=== PATIENT | female | born 1930 | race African-American/Black ===

== ENCOUNTER 2018-02-26 23:37 | Inpatient (IN) | payer MEDICARE ==
[2018-02-27 00:31] LABS: #Basophils 0.1 thou/uL (0.0-0.2); #Eosinphils 0.1 thou/uL (0.0-0.7); #Monocytes 0.5 thou/uL (0.11-0.59); #Neutrophils 8.3 thou/uL (1.40-6.50); %Basophils 0.6 % (0.0-1.0); %Eosinophils 1.2 % (0.0-10.0); %Lymphocytes 18.5 % (21.0-51.0); %Monocytes 4.4 % (0.0-10.0); %Neutrophils 75.3 % (42.0-75.0); Hemoglobin 8.7 g/dL (12.0-16.0); Mean Corpuscular Hemoglobin 30.3 pg (27.0-31.0); Mean Corpuscular Volume 91.9 fl (81.0-99.0); Mean Platelet Volume 7.8 fL (7.4-10.4); Platelet Count 273 thou/uL (130-400); RBC Distribution Width 12.5 % (11.5-14.5); Red Blood Cell (RBC) Count 2.87 mill/uL (4.20-5.40)
[2018-02-27 00:50] LABS: INR-International Normal Ratio 1.2; PTT 27.8 SEC (22.9-36.1); Prothrombin Time 15.7 SEC (12.0-14.7)
[2018-02-27 00:51] LABS: ALT (SGPT) Less than 7 U/L (8-55); AST (SGOT) 9 U/L (5-34); Albumin 3.5 g/dL (3.4-4.8); Alkaline Phosphatase 43 U/L (40-150); Anion Gap 14 mmol/L (10-20); BUN (Urea Nitrogen) 39 mg/dL (9.8-20.1); Bilirubin, Total 0.3 mg/dL (0.2-1.2); Calc. Creatinine Clearance 0 mL/min (70-130); Calcium 9.3 mg/dL (7.8-10.44); Carbon Dioxide 22 mmol/L (23-31); Chloride 106 mmol/L (98-107); Estimated GFR-MDRD 79; Globulin 2.2 g/dL (2.4-3.5); Glucose 188 mg/dL (83-110); Potassium 3.6 mmol/L (3.5-5.1); Protein, Total 5.7 g/dL (6.0-8.3); Sodium 138 mmol/L (136-145)
[2018-02-27 00:55] LABS: Troponin I 0.024 ng/mL (< 0.028)
[2018-02-27] MEDS ORDERED: Pantoprazole 40 MG VIAL ONE (01:20)
[2018-02-27 01:26] LABS: Bilirubin Negative (Negative); Blood, Urine Negative (Negative); Clarity CLEAR (Clear); Glucose, Urine (Dipstick) Negative (Negative); Leukocyte Negative (Negative); Nitrite Negative (Negative); Protein, Urine (Dipstick) Negative (Neg-Trace); Specific Gravity, Urine 1.018 (1.002-1.036)
[2018-02-27] MEDS ORDERED: Ondansetron ODT 4 MG TAB SL PRN (02:50)
[2018-02-27] MEDS ORDERED: Ondansetron HCl/PF 4 MG/2 ML Vial IVP PRN ×2 (02:50→03:08)
[2018-02-27] MEDS ORDERED: Sodium Chloride 0.9% 1,000 ML IV SCH (03:00)
[2018-02-27] MEDS ORDERED: Loperamide HCl 2 MG CAP PO PRN (03:08)
[2018-02-27] MEDS ORDERED: Sodium Chloride 0.65% Nasal 44 ML BOT EA NARE PRN (03:08)
[2018-02-27] MEDS ORDERED: HYDROcodone/Acetaminophen 5/325 mg Tablet PO PRN (03:08)
[2018-02-27] MEDS ORDERED: Nitroglycerin 0.4 MG TAB (25 Tab Bottle) SL PRN (03:08)
[2018-02-27] MEDS ORDERED: Artificial Tears 18 DROP/0.9 ML EA EYE PRN (03:08)
[2018-02-27] MEDS ORDERED: Eucerin (Mineral Oil/Petrolatum,White) 30 gm Jar TOP PRN (03:08)
[2018-02-27] MEDS ORDERED: Chloraseptic Spray 180 ml Bottle PO PRN (03:08)
[2018-02-27] MEDS ORDERED: Senokot 8.6 MG TAB PO PRN (03:08)
[2018-02-27] MEDS ORDERED: Labetalol HCl 100 MG/20 ML VIAL SLOW IVP PRN (03:08)
[2018-02-27] MEDS ORDERED: Diabetic Tussin 200 MG/10 ML UDCUP PO PRN (03:08)
[2018-02-27] MEDS ORDERED: Mag-Al 1200 mg/1200 mg/30 ML UDCUP PO PRN (03:08)
[2018-02-27] MEDS ORDERED: Ondansetron ODT 4 MG TAB PO PRN (03:08)
[2018-02-27] MEDS ORDERED: Loratadine 10 MG TAB PO PRN (03:08)
[2018-02-27] MEDS ORDERED: Acetaminophen 325 MG TAB PO PRN (03:08)
[2018-02-27] MEDS ORDERED: Milk Of Magnesia 30 ML UDCUP PO PRN (03:08)
[2018-02-27 03:30] VITALS: BMI 21.7
[2018-02-27 03:52] LABS: #Lymphocytes 0.9 thou/uL (1.20-3.40); #Monocytes 0.6 thou/uL (0.11-0.59); #Neutrophils 12.4 thou/uL (1.40-6.50); %Basophils 0.1 % (0.0-1.0); %Eosinophils 0.1 % (0.0-10.0); %Lymphocytes 6.2 % (21.0-51.0); %Monocytes 4.6 % (0.0-10.0); Hemoglobin 9.1 g/dL (12.0-16.0); Mean Corpuscular HGB CONC 33.3 g/dL (32.0-36.0); Mean Corpuscular Hemoglobin 30.8 pg (27.0-31.0); Mean Corpuscular Volume 92.4 fl (81.0-99.0); Mean Platelet Volume 8.1 fL (7.4-10.4); Platelet Count 241 thou/uL (130-400); RBC Distribution Width 12.5 % (11.5-14.5); Red Blood Cell (RBC) Count 2.97 mill/uL (4.20-5.40)
[2018-02-27 03:54] LABS: Lactic Acid 3.5 mmol/L (0.5-2.2)
[2018-02-27 04:00] LABS: ALT (SGPT) Less than 7 U/L (8-55); AST (SGOT) 6 U/L (5-34); Albumin 3.6 g/dL (3.4-4.8); Alkaline Phosphatase 42 U/L (40-150); Anion Gap 12 mmol/L (10-20); BUN (Urea Nitrogen) 41 mg/dL (9.8-20.1); Bilirubin, Total 0.4 mg/dL (0.2-1.2); Calc. Creatinine Clearance 51 mL/min (70-130); Calcium 9.4 mg/dL (7.8-10.44); Carbon Dioxide 23 mmol/L (23-31); Chloride 107 mmol/L (98-107); Estimated GFR-MDRD 83; Globulin 2.3 g/dL (2.4-3.5); Glucose 141 mg/dL (83-110); Magnesium 1.6 mg/dL (1.6-2.6); Phosphorus 3.1 mg/dL (2.3-4.7); Potassium 3.9 mmol/L (3.5-5.1); Protein, Total 5.9 g/dL (6.0-8.3); Sodium 138 mmol/L (136-145)
[2018-02-27 04:03] LABS: Troponin I 0.067 ng/mL (< 0.028)
[2018-02-27] MEDS: cefTRIAXone\\ROCEPHIN 1 GM in Syringe 10 ML IVPB SCH (04:04)
[2018-02-27] MEDS: D5 0.9% NS w/ 20 mEq KCl 1,000 ML IV SCH ×2 (04:18→13:20)
[2018-02-27 04:23] LABS: Lactic Acid 3.8 mmol/L (0.5-2.2)
[2018-02-27] MEDS ORDERED: Amiodarone HCl 450 MG, Admixture Fee 1 EACH in Dextrose 5% in Water 250 ML IVPB SCH (06:00)
[2018-02-27] MEDS ORDERED: Amiodarone HCl 150 MG, Admixture Fee 1 EACH in Dextrose 5% in Water 100 ML IVPB SCH (06:00)
--- NOTE | 2018-02-27 06:26 | HP ---
PRIMARY CARE PHYSICIAN: Mike Robbins M.D. REASON FOR ADMISSION: Upper abdominal pain, paroxysmal ventricular tachycardia. HISTORY OF PRESENT ILLNESS: An 87-year-old -[place] female with a history of hypertension and osteoarthritis who was brought to emergency room by paramedics. At home, the patient was complaining of upper abdominal pain in epigastric region. The patient took Pepto-Bismol. Subsequently, the patient went to restroom. Over there, she felt lightheaded and she fell down and she had mild injury without any loss of consciousness. When asked specifically to the patient, she was pointing predominantly pain in right lower quadrant as well as epigastric region which was started yesterday. The patient did not have any diarrhea, but when she came to emergency room, she had bowel movement which was black and tarry. The patient did not have any UTI symptoms. She did not have any fever or chills, but when she arrived to emergency room, she was relatively hypotensive. She was saturating normal and she was afebrile. Unfortunately, the patient was not providing good history because of her cognitive status, so most of the history is obtained from family members present at bedside. Paramedics noted ventricular tachycardia en route and patient was given 6 mg of adenosine. Subsequently, patient converted to baseline. She had similar paroxysmal ventricular tachycardia after admission to telemetry floor. Patient specifically denies any chest pain, palpitation, syncope. She denies any orthopnea, PND or leg swelling. She denies any UTI symptoms. She did not have any fever or chills or flu-like illness. In the emergency room, patient had CT of the abdomen and pelvis which showed scattered area of small bowel wall thickening and moderate to marked left hydronephrosis. REVIEW OF SYSTEMS: The following complete review of systems was negative, unless otherwise mentioned in the HPI or below: Constitutional: Weight loss or gain, ability to conduct usual activities. Skin: Rash, itching. Eyes: Double vision, pain. ENT/Mouth: Nose bleeding, neck stiffness, pain, tenderness. Cardiovascular: Palpitations, dyspnea on exertion, orthopnea. Respiratory: Shortness of breath, wheezing, cough, hemoptysis, fever, or night sweats. Gastrointestinal: Poor appetite, abdominal pain, heartburn, nausea, vomiting, constipation, or diarrhea. Genitourinary: Urgency, frequency, dysuria, nocturia. Musculoskeletal: Pain, swelling. Neurologic/Psychiatric: Anxiety, depression. Allergy/Immunologic: Skin rash, bleeding tendency. Please see my HPI for pertinent positives and negatives. All other review of systems reviewed and negative except as mentioned in the HPI. Review of systems is pretty much unreliable because of her level of cognitive status, because of her age. ALLERGIES: No known drug allergy. CURRENT HOME MEDICATIONS: Dulcolax 5 mg p.o. daily p.r.n., lisinopril 20 mg p.o. daily, tramadol 50 mg 1 or 2 tablets p.o. daily p.r.n. PAST MEDICAL HISTORY: Hypertension, osteoarthritis. PAST SURGICAL HISTORY: Reviewed and negative. PAST PSYCHIATRIC HISTORY: Reviewed and negative. SOCIAL HISTORY: The patient lives at home with family. No history of tobacco, alcohol or illicit drug abuse. EMERGENCY ROOM COURSE: Patient is given Protonix 40 mg IV, IV fluid 1 liter and aspirin 324 mg. FAMILY HISTORY: No strong family history of premature CAD, CVA or cancer. PHYSICAL EXAMINATION: VITAL SIGNS: On arrival, blood pressure 90/53, pulse 82, respiratory rate 20, temperature 97.4, saturation 97% on 2 liter oxygen, weight 68.9 kilograms. GENERAL: Patient is currently sleepy, arousable, follows simple commands. Appears weak, elderly. HEENT: Head: Normocephalic, atraumatic. Eyes: Pupils are round, reactive to light. Extraocular muscles are intact. ENT: Oropharynx within normal limits. On admission, the patient had dried vomit on mouth and on her cloth. NECK: Supple, no JVD, no thyromegaly, no carotid bruit. LUNGS: Clear to auscultation without any rhonchi or rales. CARDIAC: S1, S2 appears regular, soft systolic murmur noted, no gallop, no rub. ABDOMEN: Soft, no peritoneal sign, no guarding, no rigidity, rebound. On deep palpation, I could not elicit any Mak sign. BACK: Unremarkable, no CVA tenderness. EXTREMITIES: Upper extremity, passive movement of all joints is unremarkable. Lower extremity, passive movement of all joints is unremarkable. EXTREMITIES: No edema. Good peripheral pulsation. SKIN: No skin rash. HEMATOLOGIC: No lymphadenopathy. PSYCHIATRIC: Normal affect. NEUROLOGIC: Grossly nonfocal examination. She moves all 4 limbs. SIGNIFICANT LABS: EKG showing premature atrial complexes, left axis deviation, LVH. Tele and E-paramedics EKG strip showed ventricular tachycardia. CT of the abdomen and pelvis showing scattered area of small bowel wall thickening, moderate to marked left hydronephrosis. CBC: WBC 11.0, hemoglobin 8.7, platelets 273. INR 1.2. BMP: Sodium 138, potassium 3.6, chloride 106, carbon dioxide 22, anion gap 14, BUN 39, creatinine 0.83, glucose 188, calcium 9.3. Lactic acid 2.8. LFT: AST 9, ALT 7, alkaline phosphatase 43, albumin 3.5. CK- MB 1.0. Troponin 0.024. Urinalysis normal. Chest x-ray based on my review, no acute cardiopulmonary process. ASSESSMENT AND PLAN: 1. Upper abdominal pain. Differential diagnosis is gastritis, peptic ulcer disease, cardiac etiology also needs to be excluded. Gallbladder pathology needs to be excluded, though patient's LFT is normal so less likely to be a gallbladder pathology. The patient has osteoarthritis and she is taking intermittently NSAIDs, so peptic ulcer disease, possible, especially patient had black tarry stool, but that black tarry stool can be explained by Pepto- Bismol. At this point, we will check stool for guaiac. We will also check stool for infectious etiology as patient has scattered area of enteritis in the CT scan that could be ischemic bowel from her age and hypotension. Patient also has elevated lactic acid that also supports ischemic small bowel. At this point, we will also obtain right upper quadrant ultrasound to rule out any gallbladder pathology and we will rule out cardiac etiology as well and we will hydrate her with IV fluid and we will empirically start Rocephin and we will give her Protonix 40 mg IV b.i.d. Based on our conformation, we will consider with a GI needs to be involved in the case or not to do more testing. 2. Left hydronephrosis, suspected chronic. Her urinalysis is normal. She does not have any CVA tenderness. We will consult Urology for further evaluation. 3. Paroxysmal nonsustained ventricular tachycardia. Cardiology will be consulted. We will check magnesium and phosphorus. We will do serial cardiac enzymes to rule out acute coronary syndrome. Echocardiography will be obtained. We will closely monitor on telemetry floor. If ventricular tachycardia happens recurrently then we will consider amiodarone drip. 4. Hypertension. We will continue lisinopril 20 mg p.o. daily if blood pressure permits. We will hold on antihypertensive medication if blood pressure is less than 120. 5. Anemia, normocytic, normochromic. We do not have any previous hemoglobin. The patient's previous hemoglobin is 11.9 and currently 8.7. The patient is also clinically appeared dehydrated and that is why we are expecting her hemoglobin would be less than this, we will monitor H&H while in hospital. We will check CBC now and then we will also repeat H&H during daytime as well. If her hemoglobin drops, then we will consider blood transfusion. 6. Deep venous thrombosis prophylaxis. We will avoid heparin product at this point because we are suspecting melenotic stool. If that possibility excluded, then we will consider deep venous thrombosis prophylaxis with Lovenox. 7. Gastrointestinal prophylaxis. Patient is already kept on Protonix 40 mg IV q.12 hours. 8. Code status: Spoke with the patient's family member, the patient is FULL CODE. Patient's daughter is surrogate decision maker. DISPOSITION PLAN: Based on clinical course. We will also consult PT, OT while in hospital and we decided that this patient needs a new placement before discharge. ELAINE
[2018-02-27 07:11] LABS: CKMB 2.2 ng/mL (0-6.6); Troponin I 0.084 ng/mL (< 0.028)
[2018-02-27 07:12] LABS: ALT (SGPT) Less than 7 U/L (8-55); AST (SGOT) 11 U/L (5-34); Albumin 3.7 g/dL (3.4-4.8); Alkaline Phosphatase 43 U/L (40-150); Bilirubin, Direct 0.2 mg/dL (0.1-0.3); Bilirubin, Total 0.4 mg/dL (0.2-1.2); Protein, Total 6.1 g/dL (6.0-8.3)
--- NOTE | 2018-02-27 08:16 | RAD ---
AP VIEW CHEST: HISTORY: An 87-year-old who presents with a history of right lower quadrant pain. FINDINGS: AP view chest demonstrates degenerative changes seen in both shoulders. Calcification and ectasia of the aorta is seen. No evidence of effusions, pneumonia, or pneumothorax is seen. IMPRESSION: No evidence of acute intrathoracic abnormality is noted. POS: [facility]
[2018-02-27] MEDS: Pantoprazole 40 MG VIAL IVP SCH ×2 (08:48→20:46)
[2018-02-27] MEDS ORDERED: Lisinopril 20 MG TAB PO SCH (09:00)
[2018-02-27 09:50] LABS: CKMB 2.1 ng/mL (0-6.6); Troponin I 0.074 ng/mL (< 0.028)
--- NOTE | 2018-02-27 11:07 | PDOC.EVN ---
Event Note - Event Note Event Note: Patient seen and examined, no new issues, continue current plan of care for now. Sinus tach likely due to pain, no changes in plan of care for now.
--- NOTE | 2018-02-27 14:40 | CON ---
DATE OF CONSULTATION: 02/27/2018 REASON FOR CONSULTATION: Wide complex tachycardia. HISTORY OF PRESENT ILLNESS: Ms. Liao is a very pleasant 87-year-old -[place] female, who come s to the hospital for epigastric pain. She was at home complaining of upper abdominal pain in the ep igastric region. She went to the bathroom, where she felt little lightheaded, went down and had a sm all injury without any syncope or presyncope. She then continued to have worsening pain in right low er quadrant, so EMS was called and brought her in. On the way in EMS noted that she went into this r apid heart rate. She has an underlying bundle branch block and when very tachycardic, she was given one dose of IV adenosine, which successfully broke the rhythm and she was brought in for further eval uation. Cardiology is being called for the rhythm that she has been having. She has had at least 3 more times while here in the hospital. PAST MEDICAL HISTORY: 1. Hypertension. 2. Osteoarthritis. PAST SURGICAL HISTORY: None. OUTPATIENT MEDICATIONS: Include: 1. Dulcolax. 2. Lisinopril 20 mg a day. 3. Tramadol 50 mg p.r.n. pain. SOCIAL HISTORY: No alcohol, tobacco or drugs. FAMILY HISTORY: Noncontributory. ALLERGIES: No known drug allergies. REVIEW OF SYSTEMS: A 12 point review of systems was done and is all negative unless stated in the hi story of present illness. PHYSICAL EXAMINATION: VITAL SIGNS: Temperature 98.3, pulse 71, respiratory rate 19, satting 96% on 4 liters, blood pressur e 146/65. GENERAL: Awake, alert, oriented x3, in no distress. HEENT: Normocephalic, atraumatic. NECK: Supple. LUNGS: Clear. CARDIOVASCULAR: S1, S2, no S3 or S4. There is a grade 3/6 systolic murmur at the right upper sterna l border. ABDOMEN: Soft. EXTREMITIES: No edema. SKIN: Warm and dry. LABORATORY WORK: Reviewed. White count of 14, hemoglobin of 9.1, hematocrit of 27, and platelet cou nt of 241. Coags were unremarkable. Chemistry was unremarkable. GFR is 83. Lactic acid was 2.8, u p to 3.5. Troponin was 0.02, 0.06, 0.08, and 0.07. Normal TSH. Albumin of 3.7. BNP at 116. Echocardiogram showed an EF of 50% to 55% with 1/3 diastolic dysfunction. There is a small size kadie cardial effusion, mild AI and aortic valve sclerosis, but there is a calcified area appears to be a m ass next to the right atrium. Telemetry was reviewed. She has an underlying wide complex beats bundle branch morphology and she nagy s episodes of what I think is SVT or atrial tachycardia, heart rate in the 150s and will also be 2:1 flutter and they are self-limited. Otherwise, she is in sinus rhythm. I do not see any ventricular tachycardia. ASSESSMENT AND PLAN: 1. Wide complex rhythm: She has an underlying bundle branch block and she is having most likely sup raventricular tachycardia versus atrial tachycardia. We will add a low dose beta-leora and will co nsult EP tomorrow; however, her main issue is in her abdomen. Seeing that there is something impingi ng against the right atrium, this could provoke atrial arrhythmias. We would recommend getting a CT scan of the chest with contrast to evaluate for any masses further. I spoke with Radiology and they tell me they cannot see much as this abdominal scan was a noncontrasted CT. When I see the sagittal views, it looks like there is either a large piece of bowel versus liver just protruding into the rig ht atrium. 2. Abdominal pain: Per primary team. Thank you for letting us participate in the care of your patient. We will follow.
--- NOTE | 2018-02-27 15:10 | CT ---
PRELIMINARY REPORT/[facility]/EMERGENTY AFTER-HOURS PROCEDURE CT Abdomen and Pelvis Without Intravenous Contrast EXAM DATE/TIME: Exam ordered 02/27/2018 2:04 AM CLINICAL HISTORY: 87 years old, female; Pain; Abdominal pain; Localized; Right lower quadrant (rlq); Patient HX: F 87 p resents to ed with abdominal pain to rlq since yesterday. Pt states that she drank a bottle of peptob ismol began to vomit, 2x today. Pain has subsided. Ems reports v tach en route, gave 6mg of adenosine and pt converted back to baseline. Pt also reports a fall without injury or loc while walki ng to restroom. Otherwise no current cp or abd pain at this time. TECHNIQUE: Axial computed tomography images of the abdomen and pelvis without intravenous contrast. Coronal refo rmatted images were created and reviewed. COMPARISON: No relevant prior studies available. FINDINGS: Lung bases: There is subpleural atelectasis of the dependent portions of the lungs. ABDOMEN: Liver: There are no focal liver lesions identified. Gallbladder and bile ducts: The gallbladder is mildly prominent. There is no evidence of biliar ducta l dilation. No calcified stones. Pancreas: The pancreas appears normal. No ductal dilation. Spleen: The spleen is normal. Adrenals: The adrenal glands are normal. Kidneys and ureters: There is moderate to marked LEFT hydronephrosis with abrupt collapse at the LEFT UPJ. The right kidney is normal. Stomach and bowel: There are scattered areas of small bowel wall thickening, nonspecific, possibly du e to under distention although enteritis is also possible. The stomach is normal. The duodenum is unremarkable. Appendix: A normal appendix is identified. PELVIS: Bladder: The bladder is normal. No stones. Reproductive: The uterus is normal. ABDOMEN and PELVIS: Intraperitoneal space: Normal. No free air. No significant fluid collection. Bones/joints: The lumbar spine demonstrates mild degenerative changes at multiple levels. No acute fr acture. No dislocation. Soft tissues: Normal. Vasculature: The vasculature demonstrates diffuse moderate atherosclerotic calcification. No abdomina l aortic aneurysm. Lymph nodes: Normal. No enlarged lymph nodes. IMPRESSION: 1. There are scattered areas of small bowel wall thickening, nonspecific, possibly due to under diste ntion although enteritis is also possible. Correlate clinically. 2. There is moderate to marked LEFT hydronephrosis with abrupt collapse at the LEFT UPJ. 3. Mild gallbladder prominence, probably normal. If acute cholecystitis is suspected a RIGHT upper qu adrant ultrasound may be performed for further characterization. Thank you for allowing us to participate in the care of your patient. Dictated and Authenticated by: Darrion Acosta MD 02/27/2018 2:33 AM Central Time ([place] & [place]) FINAL REPORT NONCONTRAST ENHANCED CT IMAGES OF ABDOMEN AND PELVIS: DATE: 02/27/18. HISTORY: This 87-year-old presents with a history of right lower quadrant abdominal pain for 2 days. FINDINGS: Unfortunately, IV and oral contrast was not given. This does decrease the sensitivity for detection of pathology. Noncontrast-enhanced CT images of the abdomen and pelvis demonstrate the lung bases to be unremarkabl e. No evidence of free intraperitoneal air is seen. The liver and spleen are unremarkable. The stomach contains a large amount of hyperdense material, i ncluding likely Pepto-Bismol. The right kidney is unremarkable. There is a moderate degree of left- sided hydronephrosis, possibly representing a left-sided ureteropelvic junction obstruction. The loo ps of small bowel are not significantly distended. There does appear to be a moderate amount of stoo l in the colon. There is some moderate distention of the gallbladder. I concur with the dictation from [facility]. POS: [facility]
[2018-02-27] MEDS ORDERED: ISOVUE-370 76%-LOCM 1 ML ONE (16:40)
--- NOTE | 2018-02-27 18:13 | CON ---
DATE OF CONSULTATION: 02/27/2018 HISTORY OF PRESENT ILLNESS: This is an 87-year-old -[place] woman that was admitted shortly after midnight last night. She was brought in with right upper quadrant and right lower quadrant abd ominal pain and she also had ventricular tachycardia. She has had evaluation for this with CT scan. The CAT scan showed left hydronephrosis. I have reviewed that and I have talked with Dr. Mata, the report still pending, but Dr. 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 T he ureter does not appear dilated. The renal pelvis does show calyceal system is not significantly d ilated nor does she have any thinning out of her renal parenchyma. On talking with her and talking w ith her family, she has never had any history of kidney stones, left flank pain, blood in the urine a nd thus far she knows no urinary tract infections. Urinalysis that she had when she came in was comp letely normal and her creatinine was normal at 0.79. She is anemic, hemoglobin is 8.7 and 9.1 this m orning and her white count is mildly elevated. Urinalysis as mentioned was completely clear. She nagy s had a low grade temperature. She did have some positive stool for occult blood and I think that is being evaluated. She did also on CAT scan appeared to be quite constipated, although when I saw rené nassar she had a large bowel movement. PAST MEDICAL HISTORY: She has had a hysterectomy. She has never had any cancer of the female organ system. She does have a history of arthritis. She has a history of some hypertension. MEDICATIONS: She takes lisinopril. She takes tramadol. She has been taking some Dulcolax. ALLERGIES: She has no known drug allergies. SOCIAL HISTORY: She does not smoke. She does not drink. PHYSICAL EXAMINATION: She has no flank tenderness on the left or the right. She has no palpable abd ominal mass. Her abdomen is soft and currently nontender without rebound or guarding. When she came in, she was having kind of right lower quadrant and some right upper quadrant discomfort, but she do es not appear to have any at this point. Bimanual exam reveals no pelvic mass. No urethral mass, an absent uterus and no other abnormality. Although her stools are guaiac positive when she came in, t he nurses that were cleaning up said that stool appeared to be more brown currently and certainly did not have the order suggestive of gastrointestinal bleed currently. 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 I talked with her daughters about this. This is most likely something she has had all of her life. Her renal cortex appears to be well maintained. Her creatinine is normal and s he has had no history of left flank pain or discomfort or stone formation and for this reason, I do n ot think it should be to encourage further evaluated. I would not recommend any further imaging stud y to look at the left kidney. If she starts to develop problems with pain on that side, then we coul d address it then, but for currently, I think this is just something that the CT finding that is of n o significant consequence to her health.
--- NOTE | 2018-02-27 18:53 | CT ---
CT OF THE CHEST WITH CONTRAST CT OF THE ABDOMEN WITH CONTRAST Comparison: CT abdomen/pelvis 02-27-18 History: Chest and abdominal pain since 2:00 this morning. Technique: 1. Multiple contiguous axial images were obtained in a CT of the chest with contrast. Coronal reforma ts were performed. 2. Multiple contiguous axial images were obtained in a CT of the abdomen with contrast. PO contrast w as administered. Coronal reformats were performed. The pelvis was not imaged on this exam. FINDINGS: CT CHEST: The heart is upper limits of normal in size. There are calcifications in the coronary arteries and ao rta. No hilar or mediastinal lymphadenopathy are seen. No focal infiltrates are seen in the lungs. Atelectasis is seen in both lung bases. No pneumothorax o r pleural effusion are seen. Degenerative changes are seen in the thoracic spine. The chest wall soft tissues are unremarkable. CT ABDOMEN/PELVIS: There is mild central intrahepatic biliary dilatation. The gallbladder shows no obvious abnormality. There is stable enlargement of the left renal collecting system which tapers abruptly at the ureterop elvic junction. No delay of the left nephrogram is seen compared to the right. The right kidney, adre nal glands, spleen, and pancreas are unremarkable. No free air, free fluid, or stranding changes are seen in the abdomen. Degenerative changes are seen in the lumbar spine. The abdominal wall soft tissues are unremarkable. No abdominal adenopathy is see n. The visualized large and small bowel are unremarkable. IMPRESSION: 1. No evidence of acute intrathoracic abnormality. 2. Mild biliary dilatation is nonspecific. 3. Prominence of the left renal collecting system without significant delay in the left nephrogram to suggest obstruction. POS: [facility]
[2018-02-27] MEDS: Metoprolol Tartrate 25 MG TAB PO SCH (20:46)
[2018-02-28] MEDS: D5 0.9% NS w/ 20 mEq KCl 1,000 ML IV SCH ×3 (03:24→21:12)
[2018-02-28] MEDS: cefTRIAXone\\ROCEPHIN 1 GM in Syringe 10 ML IVPB SCH (04:54)
[2018-02-28 05:24] LABS: #Eosinphils 0.4 thou/uL (0.0-0.7); #Lymphocytes 1.6 thou/uL (1.20-3.40); #Monocytes 0.6 thou/uL (0.11-0.59); #Neutrophils 12.1 thou/uL (1.40-6.50); %Basophils 0.3 % (0.0-1.0); %Lymphocytes 10.7 % (21.0-51.0); %Monocytes 3.9 % (0.0-10.0); %Neutrophils 82.2 % (42.0-75.0); Hemoglobin 6.8 g/dL (12.0-16.0); Mean Corpuscular HGB CONC 33.5 g/dL (32.0-36.0); Mean Corpuscular Hemoglobin 31.1 pg (27.0-31.0); Mean Corpuscular Volume 92.8 fl (81.0-99.0); Mean Platelet Volume 8.3 fL (7.4-10.4); Platelet Count 186 thou/uL (130-400); RBC Distribution Width 12.7 % (11.5-14.5); Red Blood Cell (RBC) Count 2.19 mill/uL (4.20-5.40); White Blood Cell (WBC) Count 14.7 thou/uL (4.8-10.8)
[2018-02-28 05:52] LABS: Anion Gap 9 mmol/L (10-20); BUN (Urea Nitrogen) 30 mg/dL (9.8-20.1); Calc. Creatinine Clearance 50 mL/min (70-130); Calcium 9.1 mg/dL (7.8-10.44); Carbon Dioxide 23 mmol/L (23-31); Chloride 108 mmol/L (98-107); Estimated GFR-MDRD 80; Glucose 83 mg/dL (83-110); Potassium 3.8 mmol/L (3.5-5.1); Sodium 136 mmol/L (136-145)
[2018-02-28 06:41] LABS: #Basophils 0.1 thou/uL (0.0-0.2); #Eosinphils 0.5 thou/uL (0.0-0.7); #Lymphocytes 1.8 thou/uL (1.20-3.40); #Monocytes 0.6 thou/uL (0.11-0.59); #Neutrophils 12.1 thou/uL (1.40-6.50); %Basophils 0.4 % (0.0-1.0); %Eosinophils 3.1 % (0.0-10.0); %Lymphocytes 11.8 % (21.0-51.0); %Monocytes 3.8 % (0.0-10.0); %Neutrophils 80.9 % (42.0-75.0); Hemoglobin 7.1 g/dL (12.0-16.0); Mean Corpuscular HGB CONC 33.6 g/dL (32.0-36.0); Mean Corpuscular Hemoglobin 30.5 pg (27.0-31.0); Mean Corpuscular Volume 90.9 fl (81.0-99.0); Mean Platelet Volume 8.1 fL (7.4-10.4); Platelet Count 178 thou/uL (130-400); RBC Distribution Width 12.7 % (11.5-14.5); Red Blood Cell (RBC) Count 2.32 mill/uL (4.20-5.40)
[2018-02-28] MEDS: Pantoprazole 40 MG VIAL IVP SCH ×2 (08:00→20:12)
[2018-02-28] MEDS: Metoprolol Tartrate 25 MG TAB PO SCH ×2 (08:00→20:11)
--- NOTE | 2018-02-28 13:09 | PDOC.PN ---
- Subjective Encounter Start Date: 02/28/18 Encounter Start Time: 08:45 Subjective: no abd pain or nausea -: no tanvir blood in stool or dizziness -: is amb in room, 2 daughters are in room - Objective Resuscitation Status: Resuscitation Status FULL:Full Resuscitation MAR Reviewed: Yes Vital Signs & Weight: Vital Signs (12 hours) Temp Pulse Resp BP BP Pulse Ox 02/28/18 11:45 97.6 F 68 17 105/53 L 95 02/28/18 07:55 99.0 F 66 18 110/53 L 100 02/28/18 03:13 99.9 F H 56 L 20 107/53 L 100 Weight Weight 143 lb 14.4 oz I&O: 02/27/18 02/28/18 03/01/18 06:59 06:59 06:59 Intake Total 270 Output Total 0 Balance 270 Result Diagrams: 02/28/18 06:04 02/28/18 04:57 Additional Labs: Accuchecks 02/28/18 02/28/18 02/27/18 12:16 05:25 19:50 POC Glucose 84 87 143 H 02/27/18 17:37 POC Glucose 122 H Phys Exam - Physical Examination HEENT: PERRLA, moist MMs Neck: no JVD, supple Respiratory: no wheezing, no rales Cardiovascular: RRR, no significant murmur Gastrointestinal: soft, non-tender, positive bowel sounds Musculoskeletal: no edema, pulses present Neurological: non-focal, moves all 4 limbs Psychiatric: normal affect, A&O x 3 Dx/Plan (1) GI bleed Code(s): K92.2 - GASTROINTESTINAL HEMORRHAGE, UNSPECIFIED Status: Acute Qualifiers: GI bleed type/associated pathology: unspecified gastrointestinal hemorrhage type Qualified Code(s): K92.2 - Gastrointestinal hemorrhage, unspecified (2) Anemia Code(s): D64.9 - ANEMIA, UNSPECIFIED Status: Chronic Qualifiers: Anemia type: unspecified type Qualified Code(s): D64.9 - Anemia, unspecified (3) HTN (hypertension) Code(s): I10 - ESSENTIAL (PRIMARY) HYPERTENSION Status: Chronic Qualifiers: Hypertension type: essential hypertension Qualified Code(s): I10 - Essential (primary) hypertension (4) Demand ischemia of myocardium Code(s): I24.8 - OTHER FORMS OF ACUTE ISCHEMIC HEART DISEASE Status: Acute - Plan is on protonix q12h -: ceftriaxone, will dc in am if cultures are -ve -: GI consult, keep pt npo, gentle iv hydration until npo status -: lopressor bid 25mg, no further tachy arrhythmias -: ef of 55% with 1/3 diastolic dysfunction, H/H is 06/04, labs in am * . Review of Systems - Medications/Allergies Allergies/Adverse Reactions: Allergies Allergy/AdvReac Type Severity Reaction Status Date / Time No Known Allergies Allergy Unverified 02/27/18 02:48 Medications: Current Medications Acetaminophen (Tylenol) 650 mg PO Q4H PRN PRN Reason: Headache/Fever or Pain Hydrocodone Bitart/Acetaminophen ([place] 5/325) 1 tab PO Q4H PRN PRN Reason: Moderate Pain (4-6) Al Hydroxide/Mg Hydroxide (Maalox) 30 ml PO Q6H PRN PRN Reason: Heartburn or Indigestion Artificial Tears (Tears Naturale) 0 drop EA EYE PRN PRN PRN Reason: Dry Eyes Guaifenesin (Robitussin Sf) 200 mg PO Q4H PRN PRN Reason: Cough Potassium Chloride/Dextrose/Sod Cl (D5 0.9% Ns W/ 20 Meq Kcl) 1,000 mls @ 100 mls/hr IV .Q10H [facility] Last Admin: 02/28/18 09:15 Dose: Not Given Ceftriaxone Sodium 1 gm/ (Syringe) 10 mls @ 120 mls/hr IVPB Q24HR [facility] Last Admin: 02/28/18 04:54 Dose: 10 mls Labetalol HCl (Normodyne) 20 mg SLOW IVP Q4H PRN PRN Reason: Systolic BP > 180 Loperamide HCl (Imodium) 2 mg PO PRN PRN PRN Reason: Diarrhea/Loose Stools Loratadine (Claritin) 10 mg PO DAILYPRN PRN PRN Reason: Sinus Symptoms Magnesium Hydroxide (Milk Of Magnesium) 30 ml PO DAILYPRN PRN PRN Reason: Constipation Metoprolol Tartrate (Lopressor) 25 mg PO BID [facility] Last Admin: 02/28/18 08:00 Dose: 25 mg Mineral Oil/White Petrolatum (Eucerin Cream) 0 gm TOP BIDPRN PRN PRN Reason: Dry Skin Nitroglycerin (Nitrostat) 0.4 mg SL Q5MIN PRN PRN Reason: Chest Pain Ondansetron HCl (Zofran Odt) 4 mg PO Q6H PRN PRN Reason: Nausea/Vomiting Ondansetron HCl (Zofran) 4 mg IVP Q6H PRN PRN Reason: Nausea/Vomiting Pantoprazole Sodium (Protonix) 40 mg IVP Q12HR [facility] Last Admin: 02/28/18 08:00 Dose: 40 mg Phenol (Chloraseptic [place] 180 Ml Bot) 0 ml PO PRN PRN PRN Reason: Sore Throat Senna (Senokot) 2 tab PO HSPRN PRN PRN Reason: Constipation Sodium Chloride ([place] Nasal [place] 0.65%) 0 ml EA NARE QIDPRN PRN PRN Reason: Nasal Congestion
[2018-02-28] MEDS ORDERED: GoLYTELY 4,000 ml Bottle PO SCH (13:45)
--- NOTE | 2018-02-28 13:49 | PDOC.CTH ---
Cardiology Progress Note - Subjective She is doing better. Her abdominal pain has improved. - Objective Vital Signs Temp Pulse Resp BP BP Pulse Ox 02/28/18 11:45 97.6 F 68 17 105/53 L 95 02/28/18 07:55 99.0 F 66 18 110/53 L 100 02/28/18 03:13 99.9 F H 56 L 20 107/53 L 100 Weight 143 lb 14.4 oz 02/27/18 02/28/18 03/01/18 06:59 06:59 06:59 Intake Total 270 Output Total 0 Balance 270 - Physical Examination General/Neuro: alert & oriented x3, NAD Neck: no JVD present Lungs: CTA, unlabored respirations Heart: RRR Abdomen: NT/ND Extremities: other: (no edema) - Telemetry Telemetry Rhythm: S sophia. BBB. - Labs Result Diagrams: 02/28/18 06:04 02/28/18 04:57 Troponin/CKMB CK-MB (CK-2) 2.1 ng/mL (0-6.6) 02/27/18 09:04 Troponin I 0.074 ng/mL (< 0.028) H 02/27/18 09:04 - Assessment/Plan 1. Non sustained SVT most likely 2. Abdominal pain 3. LBBB 4. Anemia Hgb from 9.1 down to 6.8 PLAN: - Will consult EP for SVT. - Normal LV function. - GI to evaluate for possible GI bleeding.
--- NOTE | 2018-02-28 14:14 | CON ---
DATE OF CONSULTATION: 02/28/2018 GI INPATIENT CONSULTATION REQUESTING PHYSICIAN: Dr. Roberts. REASON FOR CONSULTATION: Possible GI bleed and anemia. HISTORY OF PRESENT ILLNESS: Ba Liao is a very pleasant 87-year-old -[place] woman with a history significant only for hypertension and osteoarthritis. She does intermittently take nonstero idal anti-inflammatory drugs. She was admitted to the hospital yesterday after a recent syncopal epi sode and also complaining of abdominal pain and a black tarry stool. She has no prior history of gas trointestinal illness. She has never undergone EGD or colonoscopy. She does not take any acid suppr ession. She denies any chronic gastrointestinal symptoms; however, over the past couple of months sh e does relate a change in bowel habits with the bowel movements slowing down to about twice per week. She has also been having some transient migratory abdominal pain usually postprandially in the epig astrium, but also recently in the right lower quadrant. A couple of nights ago, she had a syncopal e pisode at home. Evidently, she had been having some more acute epigastric pain, took some Pepto-Bism ol and then vomited and had her syncopal episode. Upon presentation yesterday, she was also noted to have what appeared to be melenic stool and FOBT was positive. She was initially tachycardic and hyp otensive and was found to have a wide complex tachycardia. She has been seen by Dr. Valderrama of Cardio logy for this. Note her ejection fraction is normal at 55%. Imaging showed left UPJ obstruction, bu t she was seen by Dr. Becerril. This is actually thought to be incidental. Currently, the patient is feeling quite well. Her hemoglobin did decline significantly, it was 9.1 on admission and declined down to 7.1 today. It appears her baseline hemoglobin is somewhere between 11 and 12. Also, note BU N was quite elevated to 41 upon admission and down to 30 today. She is receiving IV Protonix. She h as not had any bowel movements today. REVIEW OF SYSTEMS: Full review of systems including constitutional, head, eyes, ears, nose, throat, GI, , cardiovascular, respiratory, musculoskeletal, and neurologic systems is negative except as no krystina in the HPI. PAST MEDICAL HISTORY: Hypertension and osteoarthritis. ALLERGIES: No known drug allergies. OUTPATIENT MEDICATIONS: Dulcolax, lisinopril, and tramadol. INPATIENT MEDICATIONS: Ceftriaxone IV, metoprolol, Protonix 40 mg IV q.12 hours. FAMILY HISTORY: Noncontributory. SOCIAL HISTORY: No smoking, alcohol, or drug use. PHYSICAL EXAMINATION: VITAL SIGNS: Temperature was 99.9 last night and 99.0, pulse 66, blood pressure 110/53, 100% oxygen saturation on 2 liters nasal cannula. GENERAL: Elderly frail 87-year-old woman lying in bed comfortably in no distress. MENTAL: Alert and fully oriented, pleasant, conversational. She can give a detailed coherent histor y. SKIN: No jaundice, no rashes were palpable. EYES: No scleral icterus. Extraocular movements are intact. ENT: Mucous membranes moist, no oral lesions. LYMPH: No submandibular or supraclavicular lymphadenopathy. THYROID: Nontender to palpation. HEART: Regular rate and rhythm. LUNGS: Clear to auscultation bilaterally. ABDOMEN: Flat, bowel sounds present, soft, nontender to palpation throughout. No masses or organome meño appreciated. EXTREMITIES: No peripheral edema. VESSELS: Radial pulses 2+ bilaterally. NEUROLOGIC: Cranial nerves II-XII intact bilaterally. No focal deficits. LABORATORY STUDIES: Hemoglobin trended down from 9.1 yesterday morning to 7.1 this morning. MCV is normal at 90.9, WBC 15.0, and platelets 178. Sodium 136, potassium 3.8, BUN initially 41 and trended down to 30, creatinine is 0.82, glucose 83. INR normal at 1.2, troponin 0.074. TSH normal at 0.89. Lactic acid was 3.8. LFTs normal with total bilirubin 0.4, alkaline phosphatase 43, AST 11 and ALT 7. FOBT was positive. Stool studies showed positive cryptosporidium antigen. Stool is negative fo r C. diff and Campylobacter. Stool culture is otherwise normal. IMAGING STUDIES: CT of the chest, abdomen, and pelvis demonstrated some nonspecific scattered loops of possible small bowel thickening which may have just been related to under distention. There is mi ld nonspecific biliary dilation, normal appearing gallbladder and pancreas. There is also prominence of the left renal collecting system. ASSESSMENT AND PLAN: 1. Anemia, acute on chronic, suspect gastrointestinal bleeding. 2. Heme positive stool. 3. Generalized abdominal pain. 4. Change in bowel habits over the past couple of months. The patient's presentation and lab parame ters seem most consistent with recent upper gastrointestinal bleeding source. Note the elevated BUN to creatinine ratio. On the other hand, she has never undergone colonoscopy and she does have this r ecent change in bowel habits. Endoscopic workup is warranted. We will plan for esophagogastroduoden oscopy and colonoscopy tomorrow after bowel preparation this evening. I discussed this in detail wit h the patient and her family and they desire to proceed. We will plan for esophagogastroduodenoscopy and colonoscopy tomorrow assuming Cardiology clears her for procedure. In the meantime, continue wi th IV Protonix. The patient is hemodynamically stable.
--- NOTE | 2018-02-28 19:13 | EKG ---
Test Reason : Blood Pressure : / mmHG Vent. Rate : 145 BPM Atrial Rate : 145 BPM P-R Int : 160 ms QRS Dur : 134 ms QT Int : 310 ms P-R-T Axes : 000 -70 107 degrees QTc Int : 481 ms Sinus tachycardia Left axis deviation Non-specific intra-ventricular conduction block vs Atypical LBBB pattern. Inferior infarct (cited on or before 26-FEB-2018) T wave abnormality, consider lateral ischemia Abnormal ECG When compared with ECG of 26-FEB-2018 23:45, (Unconfirmed) Premature atrial complexes are no longer Present Vent. rate has increased BY 65 BPM Confirmed by MAURILIO MATTA ([id number]) on 02/28/2018 7:13:36 PM Referred By: BETTE Confirmed By:MAURILIO MATTA
--- NOTE | 2018-03-01 00:31 | CON ---
DATE OF CONSULTATION: 02/28/2018 REFERRING PHYSICIAN: Dr. Valderrama. I am seeing Mrs. Liao at our [facility] telemetry floor as an electrophysiology erp implementation consultant. Her problems are: 1. Paroxysmal atrial tachycardia. 2. Near syncope. 3. Chronic left bundle branch block. 4. History of normal LV function. 5. Abdominal discomfort. 6. Advanced age. 7. History of hypertension. ALLERGIES: None noted. MEDICATIONS: Dulcolax, lisinopril, and tramadol. SUBJECTIVE: Mrs. Liao is here admitted after developing some abdominal and epigastric discomfort. The patient took Pepto-Bismol restroom, but she got lightheaded and fell down. She had mild minor bruising, but did not completely pass out. This was a relatively new symptom for her and again was worsened seemingly with the abdominal discomfort. She denies any tarry bowel movement. She has no fever or chills. No UTI like symptoms. She does not have any stroke-like symptoms. No chest pains are noted. She denies palpitations. She never passed out in the past. In fact, she was mostly healthy at home. REVIEW OF SYSTEMS: 12-point system review of system otherwise unremarkable. PAST MEDICAL HISTORY: Significant for osteoarthritis. SOCIAL HISTORY: She lives at home with family. Denies smoking, ETOH, or drug use. PAST SURGICAL HISTORY: Negative. FAMILY HISTORY: Noncontributory and negative for early heart disease or heart attacks. PHYSICAL EXAMINATION: VITAL SIGNS: Blood pressure is 110/55, heart rate 56, respiration rate 16, temperature 97.5 degrees Fahrenheit. On arrival, documented blood pressure was 160/82. GENERAL: She is alert and oriented elderly woman, in no apparent distress. NECK: Supple. Jugular veins not distended. CHEST: Coarse without crackles. CARDIOVASCULAR: Heart sounds are regular to rate and rhythm. No murmur or gallop. ABDOMEN: Benign. Bowel sounds positive. EXTREMITIES: Lower extremities without edema, clubbing, or cyanosis. Pulses are adequate. NEUROLOGIC: Patient nonfocal. MUSCULOSKELETAL: Without joint swelling or deformities. SKIN: Without rash. DATABASE: EKGs reviewed revealing sinus rhythm with a left bundle-branch block pattern. Also EKG from ER as well as during did reveal episodes of atrial tachycardia which are without change in the QRS morphology but still left bundle branch block pattern is noted. P waves seen on some of the rhythm strips to be preceding the QRS and gradually increasing the speed suggestive of atrial tachyarrhythmia. The echocardiogram from this admission reveals EF of 50% to 55%, mild MR, mild AI, mild pulmonic regurgitation, mild tricuspid regurgitation. The left bundle causing septal dyssynchrony. LABORATORY DATA: White count is 15, hemoglobin 7.1, platelet count is 178. Sodium 136, potassium 3.8, BUN is 30, creatinine 0.82. Troponin I 0.084. The chest CT reports reveals no evidence of acute intrathoracic abnormality, mildly dilation of left renal collecting system. Chest x-ray from 02/27/2018 reveals no evidence of acute intrathoracic abnormality. Abdominal CT was also negative. ASSESSMENT AND PLAN: Mrs. Liao is a pleasant 87-year-old woman with hypertension , but no prior heart disease. She is newly found with left bundle branch block pattern, although no acute ischemia suspected- albert chronic. She does have runs of atrial tachycardia, which could have contributed to her dizzy spell prior to her admit. She also has significant anemia and hypertension. This is being evaluated by the GI service. At this point due to her advanced age and other medical issues like possible gastrointestinal blood loss, I would prefer continue management. Additional of medication like metoprolol as already scheduled, possibly calcium channel blockers could be tried; if despite heart rhythm is still continues to be tachycardic at times, consideration for Multaq could be made. If after medical stabilization, the rhythm is still intractable; EP study could be considered but at this point, patient and family would prefer conservative approach. ELAINE
[2018-03-01] MEDS: D5 0.9% NS w/ 20 mEq KCl 1,000 ML IV SCH ×2 (04:49→16:40)
[2018-03-01] MEDS: cefTRIAXone\\ROCEPHIN 1 GM in Syringe 10 ML IVPB SCH (04:49)
[2018-03-01] MEDS ORDERED: Dextrose 50% Abboject 50 ML SYRINGE ONE (05:22)
[2018-03-01] MEDS: Metoprolol Tartrate 25 MG TAB PO SCH (05:26)
[2018-03-01] MEDS: Pantoprazole 40 MG VIAL IVP SCH ×2 (07:59→20:23)
[2018-03-01] MEDS ORDERED: Ondansetron HCl/PF 4 MG/2 ML Vial IVP PRN (14:07)
--- NOTE | 2018-03-01 15:43 | PDOC.PN ---
- Subjective Encounter Start Date: 03/01/18 Encounter Start Time: 15:35 Subjective: f/u for GI bleed and non-sustained VT. s/p EGD/colonoscopy today with -: final images pending. Hgb 7.1 but no PRBC's currently given. Conservative -: mgmt for cardiac status. Denies any current diarrhea. - Objective Resuscitation Status: Resuscitation Status FULL:Full Resuscitation MAR Reviewed: Yes Vital Signs & Weight: Vital Signs (12 hours) Temp Pulse Resp BP Pulse Ox 03/01/18 11:25 98 F 55 L 16 124/60 03/01/18 08:00 97.7 F 52 L 16 03/01/18 07:30 97.7 F 52 L 16 146/69 H 100 03/01/18 05:18 98.2 F 65 20 168/81 H Weight Weight 143 lb 14.4 oz I&O: 02/28/18 03/01/18 03/02/18 06:59 06:59 06:59 Intake Total 270 4100 Output Total 0 5 Balance 270 4095 Result Diagrams: 02/28/18 06:04 02/28/18 04:57 Additional Labs: Accuchecks 03/01/18 03/01/18 03/01/18 11:25 07:41 05:22 POC Glucose 100 123 H 57 L* 02/28/18 02/28/18 20:06 17:05 POC Glucose 89 83 Microbiology 02/27/18 03:20 Stool Stool Occult Blood (BETY) - Final 02/27/18 03:20 Stool Stool Culture - Final 02/27/18 03:20 Stool Rapid Parasite Screen - Final 02/27/18 03:20 Stool Campylobacter Antigen Assay - Final 02/27/18 03:20 Stool Shiga Toxin Test - Final 02/27/18 03:20 Stool C. difficile GDH Antigen & Toxins - Final 02/27/18 01:10 Urine Straight Catheter Urine Culture - Final NO GROWTH AT 36 HOURS Laboratory Tests 02/27/18 02/27/18 02/28/18 00:19 03:30 04:57 WBC 11.0 H 14.0 H 14.7 H Hgb 8.7 L 9.1 L 6.8 L Radiology Reviewed by me: Yes (CT abd - no acute process ) Phys Exam - Physical Examination Constitutional: NAD alert, responsive HEENT: PERRLA, moist MMs, sclera anicteric, oral pharynx no lesions Neck: no nodes, no JVD, supple exp wheezes in R upper lung [place] Respiratory: no rales, no rhonchi Cardiovascular: RRR, no significant murmur, no rub, gallop Gastrointestinal: soft, non-tender, no distention, positive bowel sounds Musculoskeletal: no edema, pulses present Neurological: non-focal, normal sensation, moves all 4 limbs Psychiatric: normal affect, A&O x 3 Skin: no rash, normal turgor, cap refill <2 seconds Dx/Plan (1) GI bleed Code(s): K92.2 - GASTROINTESTINAL HEMORRHAGE, UNSPECIFIED Status: Acute Qualifiers: GI bleed type/associated pathology: unspecified gastrointestinal hemorrhage type Qualified Code(s): K92.2 - Gastrointestinal hemorrhage, unspecified Comment: continue Protonix, await final imaging from EGD, serial H/H (2) Acute blood loss anemia Code(s): D62 - ACUTE POSTHEMORRHAGIC ANEMIA Status: Acute Comment: subacute component, serial H/H monitoring, CBC in am (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 etiology, no other focal findings, monitor CBC trend and clinically (5) Demand ischemia of myocardium Code(s): I24.8 - OTHER FORMS OF ACUTE ISCHEMIC HEART DISEASE Status: Acute Comment: suspected NSVT, conservative medical mgmt per Cardiology and EP recommendations - Plan plan discussed w/ family, continue antibiotics, PT/OT, health care social worker, out of bed/ambulate, DVT proph w/SCDs Stable overall -: Continue Rocephin another 24h then d/c -: Saline lock IVF -: Protonix 40mg BID -: AM lab: BMP, CBC * .
[2018-03-01] MEDS ORDERED: Lidocaine 1% PF 5 ML VIAL ONE (16:38)
[2018-03-01] MEDS ORDERED: PROPOFOL 200 MG/20 ML VIAL ONE (16:38)
--- NOTE | 2018-03-01 17:59 | PRG ---
DATE OF SERVICE: 03/01/2018 SUBJECTIVE: Ms. Liao seems to be doing fair. She just completed her EGD and colonoscopy. She was fo und to have an ulcer in the stomach. The family reports some milder wheezing, but she is overall feeling well. OBJECTIVE: VITAL SIGNS: Blood pressure is 124/60, heart rate 55, respiration 16, temperature 98 degrees Fahrenh eit. GENERAL: Alert and oriented woman in no apparent distress. NECK: Supple. Jugular veins not distended. CHEST: Coarse without crackles. CARDIOVASCULAR: Heart sounds are regular to rate and rhythm. No murmur or gallop. ABDOMEN: Benign. Bowel sounds positive. EXTREMITIES: Lower extremities without edema, clubbing or cyanosis. LABORATORY DATA: White count is 15, hemoglobin 7.1 yesterday. ASSESSMENT AND PLAN: Ms. Liao is a pleasant 87-year-old female with a history of hypertension now pre senting with left bundle branch block pattern on EKG and anemia. She also has runs of atrial tachyca rdia paroxysms were documented on her EKG. She was started on a beta leora starting twice a day, so far tolerates well, although she has minor wheezing which should be monitored. If wheezing rhythm becomes worse, she would be considered switc shun to diltiazem. She also received just IV amiodarone on presentation. So far, her rhythm has sta bilized. Her anemia is likely due to the gastric ulcer and is followed by GI. She might need a regular checku p on her hemoglobin levels. For now, I would continue beta blockers if not tolerated, then switch her to calcium channel blockers . Alternatively Multaq could be considered arrhythmia episodes become more symptomatic. Outpatient monitoring is advised. We will see her after that in the office. Thank you again for allowing me to participate in the patient's clubbing.
--- NOTE | 2018-03-01 18:25 | PDOC.CTH ---
Cardiology Progress Note - Objective Vital Signs Temp Pulse Resp BP Pulse Ox 03/01/18 11:25 98 F 55 L 16 124/60 03/01/18 08:00 97.7 F 52 L 16 03/01/18 07:30 97.7 F 52 L 16 146/69 H 100 Weight 143 lb 14.4 oz 02/28/18 03/01/18 03/02/18 06:59 06:59 06:59 Intake Total 270 4100 Output Total 0 5 Balance 270 4095 - Physical Examination General/Neuro: alert & oriented x3, NAD Neck: no JVD present Lungs: CTA, unlabored respirations Heart: RRR Abdomen: NT/ND Extremities: other: (no edema.) - Labs Result Diagrams: 02/28/18 06:04 02/28/18 04:57 Troponin/CKMB CK-MB (CK-2) 2.1 ng/mL (0-6.6) 02/27/18 09:04 Troponin I 0.074 ng/mL (< 0.028) H 02/27/18 09:04 - Assessment/Plan 1. Paroxysmal atrial tachycardia 2. UGIB 3. Chronic LBBB 4. Acute blood loss anemia Hgb from 9.1 down to 6.8 PLAN: - Will start low dose diltiazem for A tach.
--- NOTE | 2018-03-01 19:52 | OP ---
PREPROCEDURE DIAGNOSES: 1. Anemia. 2. Reported history of melena, but she was taking Pepto-Bismol. 3. Heme-positive stool. POSTPROCEDURE DIAGNOSES: 1. Antral ulcer x2, white based. No stigmata indicate high risk for rebleeding. Biopsies obtained. 2. Otherwise, normal esophagogastroduodenoscopy. 3. Colonoscopy, normal. 4. There was a history of diarrhea. Stool has been obtained. Everything is negative except for one sample that was positive for cryptosporidium antigens. If diarrhea continues, could consider treati ng for that. I suspect this likely a false positive. If it is not, this is usually a self-limited i llness in individuals who are not immunosuppressed, does not required treatment. ANESTHESIA: TIVA. PROCEDURE IN DETAIL: After the patient was informed of the risks, benefits, and possible complicatio ns of endoscopy including perforation, bleeding, reactions to medication and aspiration, informed con sent was obtained. The patient was brought to the endoscopy suite where she was sedated in a gradual fashion. The endoscope was advanced through the esophagus, stomach and second and third portion of the duodenum and slowly removed. The duodenum was normal to the third portion. The bulb was normal. The antrum of the stomach was notable for two ulcers, one in the anterior wall, one posterior wall, about 5-7 mm in size. These were both shallow, irregular shaped and white based, they have appearan ce of NSAID-related ulcerations. Biopsies were taken for H. pylori and/or malignancy. Retroflexed v iews revealed normal stomach proximally, normal sensibility. There were no signs of gastric outlet o bstruction or gastric wall infiltration. The esophagus was normal. The scope was removed after the stomach was desufflated. The patient was turned in the room and a rectal examination was performed w hich was normal. The endoscope was advanced through the anal canal through the colon to cecum which was identified by the ileocecal valve and the appendiceal orifice. The scope was then slowly removed . The prep was good. There were no polyps, masses, lesions or AV malformations. Retroflexed views in the rectum were normal. The scope was removed. The patient tolerated the procedure well and no c omplications.
[2018-03-02] MEDS: Metoprolol Tartrate 25 MG TAB PO SCH ×3 (00:57→20:13)
[2018-03-02] MEDS: cefTRIAXone\\ROCEPHIN 1 GM in Syringe 10 ML IVPB SCH (04:19)
[2018-03-02 04:27] LABS: #Eosinphils 0.4 thou/uL (0.0-0.7); #Lymphocytes 1.2 thou/uL (1.20-3.40); #Monocytes 0.5 thou/uL (0.11-0.59); #Neutrophils 4.5 thou/uL (1.40-6.50); %Basophils 0.4 % (0.0-1.0); %Eosinophils 6.4 % (0.0-10.0); %Lymphocytes 17.9 % (21.0-51.0); %Monocytes 7.6 % (0.0-10.0); %Neutrophils 67.7 % (42.0-75.0); Hemoglobin 6.5 g/dL (12.0-16.0); Mean Corpuscular HGB CONC 34.1 g/dL (32.0-36.0); Mean Corpuscular Volume 90.7 fl (81.0-99.0); Platelet Count 198 thou/uL (130-400); RBC Distribution Width 12.5 % (11.5-14.5); Red Blood Cell (RBC) Count 2.09 mill/uL (4.20-5.40); White Blood Cell (WBC) Count 6.6 thou/uL (4.8-10.8)
[2018-03-02 04:33] LABS: Anion Gap 7 mmol/L (10-20); BUN (Urea Nitrogen) 12 mg/dL (9.8-20.1); Calc. Creatinine Clearance 58 mL/min (70-130); Calcium 9.4 mg/dL (7.8-10.44); Carbon Dioxide 26 mmol/L (23-31); Chloride 108 mmol/L (98-107); Estimated GFR-MDRD Greater than 90; Glucose 99 mg/dL (83-110); Potassium 3.3 mmol/L (3.5-5.1); Sodium 138 mmol/L (136-145)
[2018-03-02 08:30] LABS: Hemoglobin 6.3 g/dL (12.0-16.0)
[2018-03-02] MEDS: Pantoprazole 40 MG VIAL IVP SCH (08:37)
--- NOTE | 2018-03-02 14:19 | PRG ---
DATE OF SERVICE: 03/02/2018 GI INPATIENT DAILY PROGRESS NOTE SUBJECTIVE: Ms. Liao is feeling okay today. Today, she ate a big breakfast and lunch and this went d own fine. No nausea or vomiting, no abdominal pain, no more melena, no diarrhea today. She is set t o receive 2 units of RBCs. PHYSICAL EXAMINATION: VITAL SIGNS: Temperature is 97.5, pulse 58, blood pressure 128/72, 97% oxygen saturation on room air . GENERAL: No acute distress. HEART: Regular rate and rhythm. LUNGS: Clear to auscultation bilaterally. ABDOMEN: Soft, nontender to palpation. EXTREMITIES: No peripheral edema. LABORATORY STUDIES: Hemoglobin declined to 6.3, hematocrit 20.1, WBC down to 6.6, platelets 198. So dium 138, potassium 3.3, BUN declined down to 12, creatinine 0.7, glucose 147. ASSESSMENT AND PLAN: 1. Gastric ulcers, visualized on esophagogastroduodenoscopy yesterday, clean based, with no stigmata for high risk of rebleeding. 2. Anemia of acute gastrointestinal blood loss. We are awaiting pathology results on the gastric bi opsies to rule out H. pylori. Suspect ulcers may be related to her aspirin. She will need to be on twice daily oral proton pump inhibitor for at least the next 2 months, then likely continuing once [place] thereafter. There has been no further evidence of overt bleeding since presentation. Agree with RBC transfusion which is planned. I will plan to see her back in GI clinic in 3-4 weeks. We will repeat CBC at that time to assure hem oglobin is improving. GI will sign off at this time, but please call back at any time with questions or concerns, particularly if there is concern for recurrence of overt bleeding.
--- NOTE | 2018-03-02 16:32 | PDOC.PN ---
- Subjective Encounter Start Date: 03/02/18 Encounter Start Time: 16:25 Subjective: f/u for GI bleed likely chronic due to gastric ulcers from NSAID use. Tx -: with Protonix 40mg BID and now receiving 2u PRBC's for Hgb 6. -: No current complaints and tolerating po intake. - Objective Resuscitation Status: Resuscitation Status FULL:Full Resuscitation MAR Reviewed: Yes Vital Signs & Weight: Vital Signs (12 hours) Temp Pulse Pulse Resp BP BP BP 03/02/18 16:26 97.9 F 55 L 16 154/79 H 03/02/18 15:12 97.8 F 56 L 18 151/73 H 03/02/18 14:48 97.7 F 59 L 14 146/70 H 03/02/18 11:23 97.5 F L 58 L 16 128/72 03/02/18 08:00 98.7 F 63 16 162/61 H Pulse Ox 03/02/18 16:26 03/02/18 15:12 03/02/18 14:48 03/02/18 11:23 97 03/02/18 08:00 100 Weight Weight 143 lb 14.4 oz I&O: 03/01/18 03/02/18 03/03/18 06:59 06:59 06:59 Intake Total 4100 250 0 Output Total 5 Balance 4095 250 0 Result Diagrams: 03/02/18 08:16 03/02/18 04:01 Additional Labs: Accuchecks 03/02/18 03/02/18 03/01/18 11:24 05:05 21:46 POC Glucose 147 H 96 138 H 03/01/18 16:47 POC Glucose 117 H Phys Exam - Physical Examination Constitutional: NAD alert, smiling HEENT: PERRLA, moist MMs, sclera anicteric, oral pharynx no lesions Neck: no nodes, no JVD, supple Respiratory: no wheezing, no rales, no rhonchi, clear to auscultation bilateral I/ BULL at apex Cardiovascular: RRR, no rub, gallop Gastrointestinal: soft, non-tender, no distention, positive bowel sounds Musculoskeletal: no edema, pulses present Neurological: non-focal, normal sensation, moves all 4 limbs Psychiatric: normal affect, A&O x 3 Skin: no rash, normal turgor, cap refill <2 seconds Dx/Plan (1) GI bleed Code(s): K92.2 - GASTROINTESTINAL HEMORRHAGE, UNSPECIFIED Status: Acute Qualifiers: GI bleed type/associated pathology: unspecified gastrointestinal hemorrhage type Qualified Code(s): K92.2 - Gastrointestinal hemorrhage, unspecified Comment: Protonix 40mg BID, transfuse 2u PRBC's today, serial H/H monitoring (2) Acute blood loss anemia Code(s): D62 - ACUTE POSTHEMORRHAGIC ANEMIA Status: Acute Comment: subacute component, serial H/H monitoring, CBC in am, see above (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 etiology, no other focal findings, monitor CBC trend and clinically (5) Demand ischemia of myocardium Code(s): I24.8 - OTHER FORMS OF ACUTE ISCHEMIC HEART DISEASE Status: Acute Comment: suspected NSVT, conservative medical mgmt per Cardiology and EP recommendations - Plan plan discussed w/ family, PT/OT, social work case manager, out of bed/ambulate, DVT proph w/SCDs Stable overall -: D/C Rocephin -: Transfuse 2u PRBC's -: Change Protonix 40mg po BID -: AM lab: BMP, CBC * Home in am 03/03/18
[2018-03-03 06:00] LABS: Anion Gap 13 mmol/L (10-20); BUN (Urea Nitrogen) 6 mg/dL (9.8-20.1); Calc. Creatinine Clearance 58 mL/min (70-130); Calcium 9.3 mg/dL (7.8-10.44); Carbon Dioxide 23 mmol/L (23-31); Chloride 106 mmol/L (98-107); Estimated GFR-MDRD Greater than 90; Glucose 77 mg/dL (83-110); Potassium 3.3 mmol/L (3.5-5.1); Sodium 139 mmol/L (136-145)
[2018-03-03 06:16] LABS: Eosinophils 5 % (0-10); Hemoglobin 9.6 g/dL (12.0-16.0); Lymphocytes 20 % (21-51); MDiff Complete? YES; Mean Corpuscular HGB CONC 34.8 g/dL (32.0-36.0); Mean Corpuscular Hemoglobin 30.9 pg (27.0-31.0); Mean Corpuscular Volume 88.9 fl (81.0-99.0); Monocytes 6 % (0-10); Neutrophil 69 % (42-75); PLT Morphology Comment Appears Adequate; Platelet Count 229 thou/uL (130-400); RBC Morphology Normal; Red Blood Cell (RBC) Count 3.11 mill/uL (4.20-5.40)
[2018-03-03] MEDS: Metoprolol Tartrate 25 MG TAB PO SCH (07:55)
[2018-03-03 12:32] VITALS: BP 170/69; TEMP 97.9
--- NOTE | 2018-03-03 17:06 | DIS ---
DATE OF ADMISSION: 02/27/2018 DATE OF DISCHARGE: 03/03/2018 DISCHARGE DIAGNOSES: 1. Acute gastrointestinal bleed secondary to antral ulcers, stable. 2. Acute blood loss anemia, status post 2 units of packed red blood cells. 3. 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 4. Neutrophilic leukocytosis, improved. 5. Demand ischemia of the myocardium. 6. Nonsustained ventricular tachycardia, resolved. 7. Hypertension, stable. CONSULTATIONS: Dr. Gilliland and Dr. Grant with GI Service. Dr. Valderrama with Cardiology service. Dr. Edgar vasquez with Electrophysiology Service. Dr. Spicer with Urology service. PERTINENT LAB AND X-RAY FINDINGS: Potassium ranged between 3.3-3.9. Troponin I ranged between 0.024 -0.084, BNP 117. TSH 0.90. Magnesium 1.6. CBC showed a white blood cell count ranging between 6.6- 15, hemoglobin ranged between 6.3-9.6. Urine culture dated 02/27/2018 showed no growth at 36 hours. Stool Hemoccult 02/27/2018, positive x1. C. difficile antigen and toxin 02/27/2018 negative. Stool culture dated 02/27/2018, showed normal enteric amira. Cryptosporidium antigen positive, 02/27/[address] of the abdomen and pelvis dated 02/27/2018 showed small bowel wall thickening, nonspecific. Mo derate to marked left hydronephrosis. Portable chest x-ray dated 02/27/2018 showed no acute cardiopu lmonary process. Two-D transthoracic echocardiogram dated 02/27/2018 showed ejection fraction of 50% -55%. Grade I/III diastolic dysfunction. Aortic valve sclerosis noted. CT of the chest dated 02/27 showed no evidence of acute intrathoracic process. CT of the abdomen dated 02/27/2018 showed p rominence of the left renal collecting system without significant delay in the left nephrogram to sug gest obstruction. EGD/colonoscopy dated 03/02/2018 showed antral ulceration x2 without active bleedi ng. Colonoscopy negative. HOSPITAL COURSE: The patient was initially admitted after presenting with abdominal pain, undergoing extensive evaluation including multiple imaging modalities showing evidence of small bowel thickenin g as well as acute anemia with approximate three drop in hemoglobin from previous hemoglobin values d ated from 05/2017. The patient was heme positive on evaluation and underwent extensive evaluation by the GI service culminating in the ED and colonoscopy exam. The patient was noted with 2 antral ulce rations and transfused 2 units of packed red blood cells. The patient also received IV Protonix 40 m g q.12 hours after likely NSAID induced ulceration. The patient was also evaluated for nonsustained ventricular tachycardia which apparently occurred x2 episodes, 1 en route to the emergency department and 1 on the telemetry unit. The patient was evaluated by Cardiology and Electrophysiology service with recommendations for conservative management and beta-leora therapy. The patient was initiated on metoprolol 25 mg b.i.d. without recurrence during the hospital course. The patient was also eval uated by the Urology service after incidental finding of left hydronephrosis noted on CT scan. The p atient underwent nephrogram showing no evidence of obstructive process and likely a chronic condition . No specific intervention was recommended and the patient ruled out with a negative urinalysis. Ov erall, patient remained clinically stable through the hospital course, tolerating regular oral intake , ambulating without assistance or difficulty with stable vital signs. I have examined the patient a t the time of discharge and discussed laboratory findings as well as discharge instructions and follo w up recommendations. The patient verbalizes understanding and agreement and ready for discharge on 03/03/2018. DISCHARGE MEDICATIONS: 1. Protonix 40 mg 1 tab p.o. b.i.d. 2. Lisinopril 20 mg 1 tab p.o. daily. 3. Dulcolax 5 mg p.o. daily p.r.n. 4. Metoprolol 25 mg p.o. b.i.d. 5. Tramadol 50 mg 1-2 tabs p.o. q.6 hours p.r.n. pain. FOLLOWUP: Patient will follow up with her primary care provider, Dr. Mike Robbins within 7 day s of discharge. The patient will follow up with Dr. Darrion Gilliland with Gastroenterology service 3-4 wee ks after discharge. CONDITION ON DISCHARGE: Stable. ACTIVITY: Ad rigoberto. SPECIAL INSTRUCTIONS: Recommend CBC at first followup visit with primary care provider. DIET: Regular. CODE STATUS: FULL. DISPOSITION: Home, 03/03/2018. Total time preparing and coordinating discharge was 33 minutes.
== END 2018-03-03 13:07 | disposition home or self-care (01) | DRG 378 ==
LOC: ERS 23:37 → 2NO 02-27 01:15 → T4-B 02-28 14:25
PROVIDERS: ADMIT Internal Medicine; ATTEND Internal Medicine
PROC: 0DB68ZX Excision of Stomach, Via Natural or Artificial Opening Endoscopic, Diagnostic (ICD-10-PCS; principal; 2018-03-01)
PROC: 0DJD8ZZ Inspection of Lower Intestinal Tract, Via Natural or Artificial Opening Endoscopic (ICD-10-PCS; 2018-03-01)
PROC: 30233N1 Transfusion of Nonautologous Red Blood Cells into Peripheral Vein, Percutaneous Approach (ICD-10-PCS; 2018-03-02)
DX: K25.0 Acute gastric ulcer with hemorrhage (principal); I47.2 Ventricular tachycardia; I24.8 Other forms of acute ischemic heart disease; N13.30 Unspecified hydronephrosis; I08.3 Combined rheumatic disorders of mitral, aortic and tricuspid valves; I10 Essential (primary) hypertension; D72.9 Disorder of white blood cells, unspecified; E11.9 Type 2 diabetes mellitus without complications; D62 Acute posthemorrhagic anemia; I44.7 Left bundle-branch block, unspecified; M19.90 Unspecified osteoarthritis, unspecified site; Z20.89 Contact with and (suspected) exposure to other communicable diseases
CPT/HCPCS: 36415; 36416; 36430; 51701; 71045; 71260; 74160; 74176; 80048; 80053; 81003; 82274; 82553; 83605; 83735; 83880; 84100; 84443; 84484; 85007; 85025; 85027; 85610; 85730; 86850; 86900; 86901; 87045; 87046; 87086; 87324; 87328; 87329; 87449; 87899; 88305; 88312; 93005; 93010; 93306; 94760; 96361; 96374; A4353; C9113; G8978-GP-CM; G8979-GP-CK; G8987-GO-CJ; G8988-GO-CI; J0282; J0696; J2001; J2704; J7070; P9016

== ENCOUNTER 2018-12-05 07:57 | Outpatient (CLI) | payer MEDICARE ==
--- NOTE | 2018-12-05 15:27 | NM ---
RADIONUCLIDE PARATHYROID SCAN WITH PLANAR AND SPECT CT IMAGES: HISTORY: An 88-year-old female with hyperparathyroidism, unspecified. PTH level on 11/23/2018 measured 108.9 (n ormal 19.8-88). RADIOPHARMACEUTICAL: 26.5 mCi Technetium 99m-sestamibi injected intravenously. FINDINGS: There is physiologic uptake in the salivary glands and the thyroid gland and the visualized portions of the heart. No focus of persistent increased tracer localization is seen in the neck or chest to suggest parathyr oid adenoma. There is a large nodule arising from the inferior pole of the left thyroid lobe without tracer locali zation. IMPRESSION: 1. No evidence of parathyroid adenoma. 2. Left thyroid nodule. This should be evaluated by ultrasound and fine needle aspiration. POS: NADYA
== END 2018-12-05 07:58 | disposition home or self-care (01) ==
LOC: NM 07:57
PROVIDERS: ATTEND Otolaryngology Plastic Surgery within the Head & Neck
DX: E21.3 Hyperparathyroidism, unspecified (principal); E04.1 Nontoxic single thyroid nodule
CPT/HCPCS: 78072; A9500